=== PATIENT | female | born 1955 | race Caucasian/White ===

== ENCOUNTER 2018-09-09 15:05 | Emergency (ER) | payer MEDICAID ==
[~2018-09-09] VITALS: Ht 157.5 cm; Wt 89.8 kg
[2018-09-09 15:52] VITALS: BP 157/86
[2018-09-09] MEDS ORDERED: traMADol HCL 50 MG TAB PO ONE (17:15)
== END 2018-09-09 17:15 | disposition home or self-care (01) ==
LOC: ER 15:37
DX: S80.12XA Contusion of left lower leg, initial encounter (principal); E11.9 Type 2 diabetes mellitus without complications; Z88.2 Allergy status to sulfonamides; Z91.041 Radiographic dye allergy status; W10.8XXA Fall (on) (from) other stairs and steps, initial encounter; Y93.01 Activity, walking, marching and hiking; Y92.89 Other specified places as the place of occurrence of the external cause; Y99.8 Other external cause status
CPT/HCPCS: 73590